=== PATIENT | female | born 1970 | race Caucasian/White ===

== ENCOUNTER 2018-09-23 13:56 | Emergency (ER) | payer MEDICAID ==
[~2018-09-23] VITALS: Ht 152.4 cm; Wt 92.0 kg
[~2018-09-23 13:56] MED LIST: NO HOME MEDS; PHEN-786 PO
[2018-09-23 14:25] VITALS: BP 143/97
[2018-09-23] MEDS ORDERED: LORazepam 1 MG tablet PO ONE (14:35)
== END 2018-09-23 16:47 | disposition left against medical advice (07) ==
LOC: ER 13:57
DX: R06.02 Shortness of breath (principal); F41.9 Anxiety disorder, unspecified; E11.9 Type 2 diabetes mellitus without complications; F12.90 Cannabis use, unspecified, uncomplicated; Z56.0 Unemployment, unspecified; Z88.0 Allergy status to penicillin; Z79.899 Other long term (current) drug therapy
CPT/HCPCS: 93005; 99283; 99284

== ENCOUNTER 2019-03-24 18:23 | Emergency (ER) | payer MEDICAID ==
[~2019-03-24] VITALS: Ht 152.4 cm; Wt 94.0 kg
[2019-03-24 18:28] VITALS: BP 125/61
[2019-03-24] MEDS ORDERED: LIDOcaine 5% patch TP ONE (19:45)
[2019-03-24] MEDS ORDERED: acetaminophen 325mg tablet PO ONE (19:45)
[2019-03-24] MEDS ORDERED: ketorolac trometh inj. 60 MG/2 ML VIAL IM ONE (19:45)
[2019-03-24] MEDS ORDERED: proCHLORperazine 10mg tablet PO ONE (19:45)
[2019-03-24] MEDS ORDERED: ACET-2615 PO (19:48)
[2019-03-24] MEDS ORDERED: LIDO700A32 TOP (19:48)
[2019-03-24] MEDS ORDERED: orphenadrine citrate 60mg/2ml inj. IM ONE (19:50)
--- NOTE | 2019-03-25 17:22 | NUR ---
PT. CALLED STATED SHE LOST HER RX FROM LAST NIGHT. I CALLED [facility]. I CALLED IN LIDODERM PATCHES 5%, 1 PATCH TOPICAL DAILY (12 HOURS ON 12 HOURS OFF) 1 BOX. TYLENOL EXTRA STRENGTH 500MG TAKE 2 TABS Q 6 HOURS X 3 DAYS
== END 2019-03-24 20:26 | disposition home or self-care (01) ==
LOC: ER 18:24
DX: M54.12 Radiculopathy, cervical region (principal); E11.9 Type 2 diabetes mellitus without complications; G89.29 Other chronic pain; F12.90 Cannabis use, unspecified, uncomplicated; Z56.0 Unemployment, unspecified; Z88.0 Allergy status to penicillin; Z79.899 Other long term (current) drug therapy
CPT/HCPCS: 96372; 99284; J1885; J2360; Q0164

== ENCOUNTER 2023-02-23 19:36 | Emergency (ER) | payer MEDICAID ==
[~2023-02-23] VITALS: Ht 152.4 cm; Wt 94.0 kg
[~2023-02-23 19:36] MED LIST changes: +LIDO700A32 TOP
[2023-02-23 19:47] VITALS: BP 126/63; PULSE 77; RESP 18; TEMP 97.1; O2SAT 96
[2023-02-23] MEDS ORDERED: ondansetron 4mg rapidly disintigrating tab PO ONE (21:10)
[2023-02-23] MEDS ORDERED: ONDA4TAB12 PO (21:41)
== END 2023-02-23 22:02 | disposition home or self-care (01) ==
LOC: ER 19:37
DX: S06.0X0A Concussion without loss of consciousness, initial encounter (principal); E11.9 Type 2 diabetes mellitus without complications; G89.29 Other chronic pain; F12.90 Cannabis use, unspecified, uncomplicated; Z56.0 Unemployment, unspecified; Z88.0 Allergy status to penicillin; Z79.899 Other long term (current) drug therapy; W22.8XXA Striking against or struck by other objects, initial encounter; Y93.89 Activity, other specified; Y92.89 Other specified places as the place of occurrence of the external cause; Y99.8 Other external cause status
CPT/HCPCS: 70450; 99284

== ENCOUNTER 2024-03-15 13:32 | Emergency (ER) | payer MEDICAID ==
[~2024-03-15] VITALS: Ht 154.9 cm; Wt 87.9 kg
[~2024-03-15 13:32] MED LIST changes: +ONDA-243 PO
[2024-03-15] MEDS ORDERED: DOXY-356 PO (16:03)
[2024-03-15 16:09] VITALS: BP 140/88; PULSE 88; RESP 18; TEMP 98; O2SAT 97
== END 2024-03-15 16:10 | disposition home or self-care (01) ==
LOC: ER 13:32
DX: L03.115 Cellulitis of right lower limb (principal); E11.9 Type 2 diabetes mellitus without complications; G89.29 Other chronic pain; F12.90 Cannabis use, unspecified, uncomplicated; Z88.0 Allergy status to penicillin; Z79.899 Other long term (current) drug therapy
CPT/HCPCS: 93971; 99284

== ENCOUNTER 2024-04-10 14:17 | Outpatient (CLI) | payer MEDICAID | END 2024-04-10 23:59 | disposition home or self-care (01) | LOC: MRI02 14:17 | PROVIDERS: ATTEND Podiatrist Foot & Ankle Surgery | DX: M67.873 Other specified disorders of tendon, right ankle and foot (principal); M25.472 Effusion, left ankle; M25.471 Effusion, right ankle; G89.29 Other chronic pain; M25.579 Pain in unspecified ankle and joints of unspecified foot; M19.90 Unspecified osteoarthritis, unspecified site | CPT/HCPCS: 73718 ==